=== PATIENT | male | born 1980 | race Caucasian/White ===

== ENCOUNTER 2020-08-01 10:08 | Emergency (ER) | payer OTHER, SELFPAY ==
--- NOTE | 2020-08-01 10:57 | XR_ITS ---
EXAMINATION: XR HAND, RIGHT CLINICAL INFORMATION: Swelling. COMPARISON: None TECHNIQUE: PA, lateral, and oblique views of the right hand. FINDINGS: The bones and soft tissues are normal. No fracture. Alignment is anatomic. Joint spaces are maintained. No erosions or soft tissue calcifications. XR/XR hand RT 2V IMPRESSION: Unremarkable right hand exam.
--- NOTE | 2020-08-01 11:01 | ED.SKABFB ---
HPI - Skin/Abscess/Foreign Bdy General Time Seen by Provider: 08/01/20 10:57 Source: patient Mode of arrival: ambulatory History of Present Illness HPI narrative: 39-year-old male otherwise healthy presenting to the emergency department after cat bite. Patient reports there has been a stray cat coming to his home over these past couple days which he has been feeding. Due to the cold temperatures last night patient wanted to bring the cat indoors, he went to go pick it out and the cat bit him to his right hand. He states concern was night he has had increased redness and swelling to his home. He denies purulence. He states he has pain when moving his thumb. He denies fevers, vomiting. Unknown last tetanus. Unknown immunizations of CT since it was stray. Tetanus up to date: no Location: R hand Associated symptoms: denies other symptoms Treatments prior to arrival: none Related Data Previous Rx's Medication Instructions Recorded acetaminophen [Tylenol] 650 mg PO Q6H PRN 5 Days #20 cap 08/01/20 amoxicillin-pot clavulanate 1 tab PO BID 10 Days #20 tab 08/01/20 [Augmentin] Allergies Allergy/AdvReac Type Severity Reaction Status Date / Time No Known Allergies Allergy Verified 08/01/20 10:57 Review of Systems Constitutional: Constitutional: Denies fever(s) Eyes: Eyes: Reports no additional eye complaints ENT: Reports system reviewed and no additional complaints, except as documented Cardiovascular: Cardiovascular: Denies chest pain and Denies dyspnea Respiratory: Respiratory: Denies cough and Denies dyspnea Gastrointestinal: Gastrointestinal: Denies vomiting Musculoskeletal: Musculoskeletal: Denies deformity Integumentary/Breasts: Skin/Breast: Reports swelling, Reports erythema and Reports wounds Neurologic: Reports system reviewed and no additional complaints, except as documented Hematologic/Lymphatic: Hematologic/Lymphatic: Denies easy bleeding PMFSH Social History Social History Advance Directives: No Advance Directives Information Provided: No Physical Exam Vital Signs: Vital Signs: Body Mass Index 31.4 Const: Other: sitting upright General: cooperative Orientation/consciousness: patient oriented x3 HENMT: Head: Yes atraumatic Eyes: Pupils: Equal, round and reactive pupils present Neck: Neck: Yes supple Chest: Chest palpation & inspection: deferred Resp: Effort & Inspection: normal respiratory effort Cardio: Rate: regular rate GI: Inspection: No distended Skin: General skin exam: erythema Neuro: General: patient oriented x3 Cranial nerves: Yes Equal, round and reactive pupils present Extrem: Other: Right upper extremity-positive radial pulse, able to range digits, able to flex and extend at the thumb however is painful, swelling noted most prominent to the thenar eminence, multiple puncture sites noted to the thenar eminence and dorsal aspect of the base of the thumb, scant erythema noted to the dorsum of the base of the thumb but most prominent to the thenar eminence, no erythematous streaking, tenderness to palpation, no evidence of external foreign body, no open lacerations, no purulence, no fluctuance, compartment soft, neurovascularly intact MDM - Skin/Abscess/Foreign Bdy MDM Narrative Medical decision making narrative: 39-year-old male presenting to the emergency department after a cat bite. Vital stable, nontoxic appearing, hemodynamically stable Will plan for a plain film to rule out foreign body. Hand has multiple puncture wounds, no lacerations to indicate sutures. No evidence of tenosynovitis as patient is able to range at the thumb but is painful. His compartments are otherwise soft. He is neurovascularly intact. No lymphangitis or erythematous streaking. Given unknown count will give rabies post exposure prophylaxis with vaccine and immunoglobulin. Will defer injecting into this site with immunoglobulin given his hand is infected. At this time we will trial outpatient antibiotics. Area was outlined with skin marker. I discussed strict return precautions with him. His tetanus was also updated. Will send prescriptions to pharmacy. Patient is aware and verbalized signs of returning, increased redness, swelling, inability to move digits, fevers, vomiting. Rabies vaccine schedule was also provided to patient. Discharge Plan Discharge Clinical Impression: Cat bite of hand, Cellulitis of hand, right Patient Disposition: Home, Self-Care Instructions: Animal Bite (ED), Cellulitis (ED) Additional Instructions: You were seen in the emergency department for a cat bite. We have updated your tetanus today. We have also given you rabies vaccines. We gave you antibiotics and Tylenol for pain. We have outlined the area with a marker, if he notice after 24 hours of taking the antibiotics that the redness is spreading beyond the marked line, increased difficulty moving her thumb, increased pain or swelling, redness extending into your wrist, fevers, vomiting, you need to return to the emergency department immediately for IV antibiotics. Prescriptions: New acetaminophen [Tylenol] 325 mg capsule 650 mg PO Q6H PRN (Reason: pain) 5 Days Qty: 20 RF: 0 amoxicillin-pot clavulanate [Augmentin] 875-125 mg tablet 1 tab PO BID 10 Days Qty: 20 RF: 0
--- NOTE | 2020-08-01 11:16 | PC.NURSE ---
pt arrived during downtime, see scanned documents for triage and additional info
[2020-08-01 11:17] VITALS: BMI 31.4
[2020-08-01] MEDS: Acetaminophen 325 MG TABLET 650 MG PO (11:28)
[2020-08-01] MEDS: Amoxicillin/Potassium Clav 875 MG TABLET PO (11:29)
[2020-08-01] MEDS: Rabies Vaccine (PCEC)/PF 1 ML VIAL IM (11:33)
[2020-08-01] MEDS: Rabies Immune Globulin/PF 300 UNIT/ML VIAL 2040 UNIT IM (11:44)
--- NOTE | 2020-08-01 12:08 | PC.NURSE ---
infor re: f/u appt's with medical day stay given. animal bite report faxed to [facility]
--- NOTE | 2020-08-01 12:48 | PC.NURSE ---
IMMUNOGLOBULIN ADMINISTERED TO RT AND LT VASTUS LATERALIS SITES IN SPLIT DOSES
== END 2020-08-01 12:09 | disposition home or self-care (01) ==
PROVIDERS: Emergency Provider Emergency Medicine
DX: S61.431A Puncture wound without foreign body of right hand, initial encounter (principal); W55.01XA Bitten by cat, initial encounter; L03.113 Cellulitis of right upper limb; Y93.9 Activity, unspecified; Y92.017 Garden or yard in single-family (private) house as the place of occurrence of the external cause; Y99.9 Unspecified external cause status; Z20.3 Contact with and (suspected) exposure to rabies
CPT/HCPCS: 73120; 90375; 90471; 90472; 90675; 90715; 96372; 99284

== ENCOUNTER 2020-08-04 | Outpatient (REF) | payer OTHER, SELFPAY | END 2020-08-04 00:01 | disposition home or self-care (01) | LOC: HO.MDS | PROVIDERS: Visit Provider Emergency Medicine | DX: Z29.14 Encounter for prophylactic rabies immune globulin (principal); W55.01XD Bitten by cat, subsequent encounter; S60.571D Other superficial bite of hand of right hand, subsequent encounter; L03.113 Cellulitis of right upper limb; Z20.3 Contact with and (suspected) exposure to rabies | CPT/HCPCS: 90471; 90675 ==

== ENCOUNTER 2020-08-08 11:21 | Outpatient (REF) | payer OTHER, SELFPAY | END 2020-08-08 11:22 | disposition home or self-care (01) | LOC: HO.MDS 11:21 | PROVIDERS: Visit Provider Emergency Medicine | DX: Z29.14 Encounter for prophylactic rabies immune globulin (principal); S60.571D Other superficial bite of hand of right hand, subsequent encounter; L03.113 Cellulitis of right upper limb; W55.01XD Bitten by cat, subsequent encounter; Z20.3 Contact with and (suspected) exposure to rabies | CPT/HCPCS: 90471; 90675 ==

== ENCOUNTER 2020-08-15 11:28 | Outpatient (REF) | payer OTHER, SELFPAY | END 2020-08-15 11:29 | disposition home or self-care (01) | LOC: HO.MDS 11:28 | PROVIDERS: Visit Provider Emergency Medicine | DX: Z29.14 Encounter for prophylactic rabies immune globulin (principal); S60.571D Other superficial bite of hand of right hand, subsequent encounter; L03.113 Cellulitis of right upper limb; W55.01XD Bitten by cat, subsequent encounter; Z20.3 Contact with and (suspected) exposure to rabies | CPT/HCPCS: 90675; 96372 ==

== ENCOUNTER 2021-03-28 18:48 | Emergency (ER) | payer OTHER, SELFPAY ==
--- NOTE | ~2021-03-28 | XR_ITS ---
EXAMINATION: XR KNEE, RIGHT CLINICAL INFORMATION: Question foreign body, fall COMPARISON: None TECHNIQUE: Four views of the right knee. FINDINGS: There is no evidence for an acute fracture or dislocation. On oblique view there is a density in the region of the lateral musculature the distal femur. This could be bandage overlying the patient as there is otherwise bandage seen. Correlation recommended clinically XR/XR knee RT 4V IMPRESSION: No acute fracture or dislocation. Density along the distal femur as described laterally may be overlying bandage material. Correlation recommended clinically.
[2021-03-28 18:54] VITALS: BP 136/80; PULSE 73; RESP 16; TEMP 37.1; O2SAT 95; BMI 31.4
--- NOTE | 2021-03-28 21:47 | PC.NURSE ---
lac to right knee irrigated at this time
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
== END 2021-03-28 22:38 | disposition home or self-care (01) ==
PROVIDERS: Emergency Provider Student in an Organized Health Care Education/Training Program
DX: S81.011A Laceration without foreign body, right knee, initial encounter (principal); S80.212A Abrasion, left knee, initial encounter; V18.0XXA Pedal cycle driver injured in noncollision transport accident in nontraffic accident, initial encounter; Y93.55 Activity, bike riding; Y92.410 Unspecified street and highway as the place of occurrence of the external cause; Y99.9 Unspecified external cause status
CPT/HCPCS: 12001; 73564; 99283; 99284

== ENCOUNTER 2021-04-09 18:12 | Emergency (ER) | payer OTHER, SELFPAY ==
[2021-04-09 18:46] VITALS: BP 113/72; PULSE 71; RESP 17; TEMP 36.7; O2SAT 96; BMI 31.4
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
== END 2021-04-09 19:57 | disposition home or self-care (01) ==
PROVIDERS: Emergency Provider Emergency Medicine; PCP Internal Medicine
DX: Z48.02 Encounter for removal of sutures (principal); S81.011D Laceration without foreign body, right knee, subsequent encounter; V19.9XXD Pedal cyclist (driver) (passenger) injured in unspecified traffic accident, subsequent encounter
CPT/HCPCS: 99283